=== PATIENT | female | born 1960 | race Caucasian/White ===

== ENCOUNTER → 2020-03-31 14:50 | Outpatient (CLI) | payer OTHER, SELFPAY ==
--- NOTE | ~2020-03-31 | US_ITS ---
US thyroid INDICATION: Hyperthyroidism TECHNIQUE: Real-time sonographic images of the thyroid gland were obtained. COMPARISON: No prior studies for comparison. FINDINGS: The right thyroid lobe measures 4.8 x 1.7 x 1.7 cm. The left thyroid lobe measures 3.9 x 1 .1 x 1.7 cm. There are small bilateral thyroid nodules. There is an isoechoic 6 mm mass in the right lobe which is solid, wider than tall, ill-defined margins and no internal echogenic foci, TR 3, likel y benign. There is a second slightly hyperechoic solid mass which is wider than tall, ill-defined mar gins and no echogenic foci, TR3. In the left lobe there is a 5 mm hyperechoic solid mass which is wid er than tall, ill-defined margins, TR 3. IMPRESSION: 1. Small bilateral thyroid nodules which are likely benign. Otherwise, unremarkable thyroid ultrasou nd. Reviewed, dictated and finalized at location A. IMPRESSION: 1. Small bilateral thyroid nodules which are likely benign. Otherwise, unremar kable thyroid ultrasound.
== END ==
PROVIDERS: Visit Provider Physician Assistant
DX: E05.90 Thyrotoxicosis, unspecified without thyrotoxic crisis or storm (principal); E04.2 Nontoxic multinodular goiter
CPT/HCPCS: 76536

== ENCOUNTER → 2021-04-11 03:34 | Outpatient (CLI) | payer OTHER, SELFPAY ==
[2021-04-11 17:32] LABS: SARS-CoV-2 RNA PCR Negative
== END ==
PROVIDERS: PCP Family Medicine; Visit Provider Internal Medicine Gastroenterology
DX: Z01.812 Encounter for preprocedural laboratory examination (principal); Z20.822 Contact with and (suspected) exposure to COVID-19
CPT/HCPCS: C9803; U0003; U0005

== ENCOUNTER 2021-04-14 01:54 | Day surgery (SDC) | payer OTHER, SELFPAY ==
[2021-04-14 06:23] VITALS: BP 146/70; PULSE 92; RESP 18; TEMP 36.3; O2SAT 100; BMI 30.5
[2021-04-14] MEDS: LACTATED RINGERS 1,000 ML 150 ML IV CONT (06:31)
--- NOTE | 2021-04-14 06:50 | WPDANESEPPF ---
Anes - Initial Pre Proc Eval Procedure: Operation Date: 04/14/21 07:30 Proposed Procedures p Screening Colonoscopy - Erik Lal MD Date/Time: 04/14/21 06:50 Surgeon: Erik Lal MD Pre Op Diagnosis: family hx of colon polyps, neoplasm Patient Data Age: 60 Gender: F Height: 1.63 m Weight: 80.7 kg Last Vital Signs Temp 36.3 C L 04/14/21 06:23 Pulse 92 04/14/21 06:23 Resp 18 04/14/21 06:23 BP 146/70 H 04/14/21 06:23 Pulse Ox 100 04/14/21 06:23 Allergies Allergy/AdvReac Type Severity Reaction Status Date / Time minocycline Allergy Unknown body aches Verified 04/14/21 06:22 Home Medications Medication Instructions Recorded Confirmed Type No Home Medications 03/31/21 03/31/21 History Patient hx anesthesia problems: none Family hx anesthesia problems: none PMFSH Family History Family History Mother Family history of malignant neoplasm of breast in first degree relative Other Family history of malignant neoplasm of breast Social History Social History Smoking status: Never smoker Alcohol intake: current Alcohol use details: socially Substance use: never Substance use type: does not use Living arrangements: with family Spiritual care concerns: No Anes - Eval Final PreProcedure Day of Procedure 04/14/21 06:50 Patient weight: obese Heart: regular rate and rhythm Lungs: clear to auscultation Airway: Mallampati scale class II Neurological: alert and oriented Last oral intake: >/= 8 hours ASA classification: II Emergent: no Anesthetic plan: proceed Anesthesia type and monitoring: general GIVS and standard monitoring Informed Consent: The patient's anesthetic plan and its attendant risks and benefits were discussed with the patient/family/POA. Questions were solicited and answers provided to the satisfaction of the patient/family/POA.
--- NOTE | 2021-04-14 07:18 | WPDGICN ---
Assessment and Plan Assessment and plan (1) Family history of colonic polyps: Code(s): Z83.71 - Family history of colonic polyps Status: Acute Assessment and Plan: Patient has a family history of colon polyps. Last colonoscopy was 2012. Plan to proceed with colonoscopy at this time. Further recommendations will be given after endoscopy. GI Consult Note Consult date/time: 04/14/21 07:18 HPI: Kalina Gray is a 60 year old female Presents for screening colonoscopy. Patient has family history of colon polyps. Her last colonoscopy was 2012. Patient reports that her current weight appetite bowel movements are normal. She denies abdominal pain. She has had no bleeding. Weight has remained stable. Review of Systems Review of Systems: All systems reviewed & are unremarkable except as noted in HPI and below PMFSH Family History Family History Mother Family history of malignant neoplasm of breast in first degree relative Other Family history of malignant neoplasm of breast Social History Social History Smoking status: Never smoker Alcohol intake: current Alcohol use details: socially Substance use: never Substance use type: does not use Living arrangements: with family Spiritual care concerns: No Meds Home Medications and Allergies Home Medications Medication Instructions Recorded Confirmed Type No Home Medications 03/31/21 03/31/21 History Allergies Allergy/AdvReac Type Severity Reaction Status Date / Time minocycline Allergy Unknown body aches Verified 04/14/21 06:22 Vital Signs Vital Signs - 24 hr 04/14/21 06:23 Temperature 97.4 F L Pulse Rate 92 Respiratory Rate 18 Blood Pressure 146/70 H Pulse Oximetry 100 Exam Narrative: Physical exam reveals patient be alert. Vital signs are stable. HEENT exam is unremarkable. Patient is anicteric. Lungs are clear to auscultation and percussion. Heart is without murmur or extra sounds. Abdominal exam bowel sounds present soft nontender with no organomegaly. Digital external rectal exam is normal.
[2021-04-14 07:42] VITALS: BP 115/72; PULSE 76; RESP 22; O2SAT 100
[2021-04-14 07:52] VITALS: BP 130/83; PULSE 77; RESP 20; O2SAT 100
[2021-04-14 08:02] VITALS: BP 135/82; PULSE 75; RESP 17; O2SAT 100
== END 2021-04-14 08:25 | disposition home or self-care (01) ==
PROVIDERS: PCP Family Medicine; Visit Provider Internal Medicine Gastroenterology
PROC: 0DJD8ZZ Inspection of Lower Intestinal Tract, Via Natural or Artificial Opening Endoscopic (ICD-10-PCS; CPT 45378; principal; 2021-04-14 07:30)
DX: Z12.11 Encounter for screening for malignant neoplasm of colon (principal); K64.8 Other hemorrhoids; K57.30 Diverticulosis of large intestine without perforation or abscess without bleeding; Z83.71 Family history of colonic polyps; E66.9 Obesity, unspecified; Z68.30 Body mass index [BMI] 30.0-30.9, adult
CPT/HCPCS: 45378; C9803; J2001; J2704; J7120; U0003; U0005

== ENCOUNTER → 2021-05-13 12:11 | Outpatient (CLI) | payer OTHER, SELFPAY ==
--- NOTE | ~2021-05-13 | US_ITS ---
EXAMINATION: US thyroid EXAM DATE: 05/13/2021 13:17 INDICATION: E03.9 - Hypothyroidism, unspecified . TECHNIQUE: Multiple grayscale and Doppler images of the thyroid were obtained (by a technologist who performed the scan) and subsequently reviewed. Individual nodules and recommendations may be reporte d in accordance with TI-RADS system as designated by the 2017 ACR White Paper TI-RADS committee. Comp pat is made to prior examination from 03/31/2020. FINDINGS: Thyroid is mildly heterogeneous and mildly enlarged, right lobe measuring 4.3 x 1.8 x 2.0 cm, the lef t measuring 4.5 x 1.5 x 1.8 cm. Couple of focal regions were measured, one which could be a right thy roid lobe midpole nodule at 6 mm diameter, not likely clinically significant. IMPRESSION: 1. Mild goiter unchanged. Return to clinical follow-up and if additional palpable abnormality develops a repeat ultrasound can be obtained. Reviewed, dictated and finalized at location A.
== END ==
PROVIDERS: PCP Family Medicine; Visit Provider Family Medicine
DX: E03.9 Hypothyroidism, unspecified (principal); E04.9 Nontoxic goiter, unspecified
CPT/HCPCS: 76536

== ENCOUNTER 2021-07-13 07:12 | Outpatient (CLI) | payer OTHER, SELFPAY ==
--- NOTE | ~2021-07-13 | XR_ITS ---
EXAMINATION: XR hip LT min 3V w AP pelvis INDICATION: Pain in unspecified head TECHNIQUE: AP view the pelvis and three views of the left hip are obtained. COMPARISON: None available FINDINGS: Bone alignment is normal. There is no fracture. The soft tissues are unremarkable. There ar e phleboliths in the left pelvis. IMPRESSION: 1. No acute osseous abnormality. Reviewed, dictated and finalized at location B. GENCY ROOM CLINICIAN
--- NOTE | ~2021-07-13 | XR_ITS ---
EXAMINATION: XR lumbar spine 2-3V DATE: 07/13/2021 07:35 INDICATION: Unspecified hip pain TECHNIQUE: Anteroposterior and lateral views of the lumbar spine, and cone-down lateral view of the l umbosacral junction were obtained. COMPARISON: None. FINDINGS: There is no fracture, dislocation, or subluxation. The vertebral body heights, alignment, a nd intervertebral disc spaces are normal. Small degenerative osteophytes project from the anterior en dplates of multiple vertebral bodies. IMPRESSION: 1. Mild lumbar spondylosis without acute findings. Reviewed, dictated and finalized at location B. ERSITY ADMINISTRATOR
== END 2021-07-13 07:13 | disposition home or self-care (01) ==
LOC: ANHIMG 07:15
PROVIDERS: PCP Family Medicine; Visit Provider Physician Assistant
DX: M25.559 Pain in unspecified hip (principal); M47.816 Spondylosis without myelopathy or radiculopathy, lumbar region
CPT/HCPCS: 72100; 73502

== ENCOUNTER 2023-04-20 10:38 | Outpatient (CLI) | payer OTHER, SELFPAY ==
--- NOTE | ~2023-04-20 | MR_ITS ---
MR breast BI wo/w con 04/25/2023 16:34 CDT INDICATION: History of left breast cancer. Possible implant rupture. TECHNIQUE: MRI of the breasts perform using standard protocol pre-and post IV contrast with the follo wing sequences: Axial T2 STIR, axial T1, axial vibrant T1 with fat suppression precontrast and multip hasic postcontrast. COMPARISON: Right mammogram dated 05/31/2021 FINDINGS: There are no abnormalities on the precontrast sequences. There is mild background parenchym al enhancement. At 8:00 in the lower outer quadrant of the right breast there is an enhancing 5 mm ma ss with rapid washout. This mass is located 5.9 cm posterior to the nipple. In the right axillary nguyễn l 5.8 cm from the nipple there is a foci of nonmass-like enhancement with rapid plateau enhancement c haracteristics, likely background. There are additional areas of nonmasslike enhancement in both eric sts, also likely related to background enhancement. No evidence of signal abnormalities in the axilla ry or internal mammary node distributions. LEFT BREAST: There is a left breast implant. There are lingual any and keyhole signs of the implant, consistent with intracapsular rupture. There is a lymph node in the right axilla with similar signal intensity characteristics to suggest silicone, compatible with extracapsular rupture. No signal abnor malities on precontrast sequences. There is mild background parenchymal enhancement. No enhancing l esions following contrast administration. No areas of enhancement meeting threshold criteria on CAD analysis. No evidence of signal abnormalities in the axillary or internal mammary node distribution s.] IMPRESSION: 1: Right breast: 5 mm mass in the lower outer quadrant of the right breast with rapid washout enhanc ement. Correlation with diagnostic bilateral mammogram and ultrasound recommended for further assessm ent. Additional areas of nonmasslike enhancement are likely background enhancement. 2: Left breast: No suspicious enhancing masses in the left breast to suggest malignancy. There is ev idence for intracapsular and extracapsular rupture of left breast implant. Recommendation: Follow-up diagnostic bilateral mammogram and right breast ultrasound recommended. BI-RADS CATEGORY 0 - INCOMPLETE STUDY, NEED ADDITIONAL IMAGING EVALUATION. Reviewed, dictated and finalized at location A. IMPRESSION: 1: Right breast: 5 mm mass in the lower outer quadrant of the right breast wit h rapid washout enhancement. Correlation with diagnostic bilateral mammogram an d ultrasound recommended for further assessment. Additional areas of nonmasslik e enhancement are likely background enhancement. 2: Left breast: No suspicious enhancing masses in the left breast to suggest m alignancy. There is evidence for intracapsular and extracapsular rupture of lef t breast implant. Recommendation: Follow-up diagnostic bilateral mammogram and right breast ultra sound recommended. BI-RADS CATEGORY 0 - INCOMPLETE STUDY, NEED ADDITIONAL IMAGING EVALUATION.
== END 2023-04-20 10:39 | disposition home or self-care (01) ==
PROVIDERS: PCP Family Medicine; Visit Provider Surgery Plastic and Reconstructive Surgery
DX: Z98.82 Breast implant status (principal); Z80.3 Family history of malignant neoplasm of breast; R92.2 Inconclusive mammogram
CPT/HCPCS: 77049; A9577; C8908

== ENCOUNTER 2023-05-24 11:11 | Outpatient (CLI) | payer OTHER, SELFPAY ==
--- NOTE | ~2023-05-24 | MMUS_ITS ---
EXAMINATION: MM diagnostic wesley BI w lance, US breast RT limited HISTORY: History of left breast cancer TECHNIQUE: Additional 3-D tomosynthesis images of the breasts were performed and synthetic 2-D images were generated. CAD analysis was submitted and interpreted. High resolution Limited right breast ult rasound was performed. COMPARISON: Comparison to multiple prior studies sequentially, with oldest reviewed study dated 04/22 20 including MRI dated 04/20/2023. BREAST PARENCHYMAL COMPOSITION: The breasts are heterogeneously dense, which may obscure small masses FINDINGS: MAMMOGRAPHIC FINDINGS: There are changes of left mastectomy with left breast implant present. No evidence for malignancy in the left breast. Asymmetries in the upper outer quadrant of the right breast are stable with adjacent tissue marker. ULTRASOUND: Limited right breast ultrasound: At 7:00, 7 cm from the nipple there is an oval hypoechoic mass measu ring 4 x 2 x 2 mm with parallel orientation, no significant posterior features and no internal vascul arity, likely benign. This likely corresponds to the mass seen on MRI. IMPRESSION: 1. Probable benign right breast mass at 7:00, 7 cm from the nipple. 2. Recommend 6 month follow-up Limited right breast ultrasound BI-RADS category 3, probably benign findings. Reviewed, dictated and finalized at location A. IMPRESSION: 1. Probable benign right breast mass at 7:00, 7 cm from the nipple. 2. Recommend 6 month follow-up Limited right breast ultrasound BI-RADS category 3, probably benign findings.
== END 2023-05-24 11:12 | disposition home or self-care (01) ==
PROVIDERS: PCP Family Medicine; Visit Provider Surgery Plastic and Reconstructive Surgery
DX: R92.8 Other abnormal and inconclusive findings on diagnostic imaging of breast (principal)
CPT/HCPCS: 76642; 77062; 77066; G0279

== ENCOUNTER 2023-08-21 00:05 | Day surgery (SDC) | payer OTHER, SELFPAY ==
[2023-08-16 12:03] VITALS: BMI 25.4
--- NOTE | 2023-08-16 12:07 | PC.NURSE ---
Report to the Outpatient Waiting Room, entrance under the green pavilion located off [facility], at time 0830 on date 08/21/23. Planned Procedure Time: 1030. Time changes happen often and if your time is changed the preop area will call you the afternoon before. - You and your visitor will be asked to self-screen and do not enter if you have any COVID symptoms. - A mask is optional within the hospital at this time. Patients may have clear liquids (water, carbonated beverages, clear teas, apple juice) until 3 hours prior to surgery with a maximum of 20 ounces. - No food from midnight until time of surgery Take the following medications with a SIP of water the morning of surgery: NONE DO NOT STOP ANY OF YOUR OTHER PRESCRIPTION MEDICATIONS PRIOR TO SURGERY ?EXCEPT THE FOLLOWING Medications to discontinue per physician: VITAMINS Date to take last dose: 08/17/23 Please no make-up, nail italian, hairspray, perfume, deodorant, or body powder the day of surgery. No jewelry (including any body piercings) or valuables the day of surgery, leave them at home. Please take a shower or bath the night before, or the morning of, surgery with an antibacterial soap. Wear comfortable, loose fitting clothing. - Jewelry must be removed prior to entering the operating room. Rings and piercings that are not removed may be cut off. - The hospital will not accept responsibility for valuables. - Please leave all valuables, including medications, at home the day of surgery. If you are going home after surgery, a licensed bus van driver must drive you home. - NO public transportation without another adult if you receive anesthesia. - We recommend that an adult stay with you for 24 hours following discharge. - We also recommend that you do not drive, make important decision, drink alcoholic beverages, or take any drugs that were not prescribed by your health care provider for at least 24 hours after your discharge time. Follow any additional instructions given to you from your surgeon. If you or anyone in your household have experienced Covid symptoms in the past week, please notify your surgeon or the nurse liaison at the phone number below for possible testing. Telephone instructions given to PT - MADDY PETERS and asked if any additional questions and then verbalized understanding. Patient advised to call surgeon office or pre surgery nurse liaison [phone] if any additional questions.
[2023-08-21] VITALS (8 sets, daily range): BP systolic 109–138; BP diastolic 51–78; PULSE 66–81; RESP 14–16; TEMP 36.3–36.6; O2SAT 100
--- NOTE | 2023-08-21 09:24 | P.PNAN_ITS ---
Anes - Initial Pre Proc Eval Procedure: Operation Date: 08/21/23 10:30 Proposed Procedures p Left Breast Implant Exchange - Enrique Fernandes MD Date/Time: 08/21/23 09:24 Surgeon: Enrique Fernandes MD Pre Op Diagnosis: left breat implant ruptrue Patient Data Age: 62 Gender: F Height: 1.63 m Weight: 66.6 kg Last Vital Signs Temp 36.6 C 08/21/23 08:56 Pulse 80 08/21/23 08:56 Resp 16 08/21/23 08:56 BP 138/68 08/21/23 08:56 Pulse Ox 100 08/21/23 08:56 O2 Del Method Room Air 08/21/23 08:56 Allergies Allergy/AdvReac Type Severity Reaction Status Date / Time minocycline Allergy Unknown body aches Verified 08/21/23 08:47 Home Medications Medication Instructions Recorded Confirmed Type calcium carbonate 600 mg calcium 600 mg PO DAILY 08/16/23 08/16/23 History (1,500 mg) tablet (Calcium) Patient hx anesthesia problems: none Family hx anesthesia problems: none Results Review: All pre-operative results and documents have been reviewed as part of the pre- operative evaluation. [facility] Past Medical History Medical History History of left breast cancer 2004 Family History Family History Mother Family history of malignant neoplasm of breast in first degree relative Other Family history of malignant neoplasm of breast Social History Social History Smoking status: Never smoker Alcohol intake: current Drinks per week: 2 Alcohol use details: socially Substance use: never Substance use type: does not use Lack of Transportation: No Lack of Food: Never True Current Housing: I Have Housing Concerned About Future Housing: No Difficulty Paying Gas/Electric Bills: No Difficulty Paying for Meds: No Currently Unemployed: No Education: High School Diploma/GED Difficulty w/ Childcare or Family Care: No Living arrangements: with family Spiritual care concerns: No Anes - Eval Final PreProcedure Day of Procedure 08/21/23 09:24 Patient weight: normal Heart: regular rate and rhythm Lungs: clear to auscultation Airway: Mallampati scale class II Neurological: alert and oriented Last oral intake: >/= 8 hours ASA classification: II Emergent: no Anesthetic plan: proceed Anesthesia type and monitoring: general LMA and standard monitoring Results Review: All pre-operative results and documents have been reviewed as part of the pre- operative evaluation. Informed Consent: The patient's anesthetic plan and its attendant risks and benefits were discussed with the patient/family/POA. Questions were solicited and answers provided to the satisfaction of the patient/family/POA.
[2023-08-21] MEDS: LACTATED RINGERS 1,000 ML 30 ML IV CONT (09:30)
--- NOTE | 2023-08-21 10:01 | WPDHPUPDATE1 ---
History and Physical Update Update Date/Time: 08/21/23 10:01 History and Physical has been reviewed, including an updated exam of the patient. There are NO changes in the patient's condition. Risks, benefits, and alternatives have been discussed and questions answered. Patient agrees to proceed with procedure.
--- NOTE | 2023-08-21 10:12 | W.PM.PROC2 ---
Procedure Note - Detailed Date of Procedure 08/21/23 Pre-op Diagnosis left breat implant ruptrue Post-op Diagnosis Same Procedure Performed Left breast implant exchange with capsulotomy Surgeon Enrique Fernandes MD Anesthesia General Findings Previous implant 350cc silicone textured. Rupture with minimal silicone extravasation intracapsular. Capsule soft and tightly adherent to pectoralis muscle. Implant submuscular. Replacement implant: Waleska Mathew SoftTouch 340cc Left - REF# [id number] Description of Procedure Preoperatively the risks, benefits, alternatives were discussed in extensive detail. I wanted to be very realistic about the risks involved as well as expectations. I was clear about how we could actually make her worse. Answered all questions to satisfaction. Voiced a clear understanding. Consent obtained. She was taken the operating room placed supine on the operating room table. Anesthesia provided by anesthesiology and prepped and draped in a standard sterile fashion. Surgical time-out was taken. 1% lidocaine and 0.25% Marcaine with epinephrine was used to provide a field block on the left. Tegaderm nipple shield placed on right breast. Fifteen blade used to excise the breast scar lateral to the Areola on the left breast. Dissection was continued down until the capsule was identified and entered. The implant was removed. See findings above. I then copiously irrigated with 3 L of saline solution on TUR tubing. Verified strict hemostasis. Inferior capsulotomy performed and IMF position secured with 2-0 PDO Quill. I then irrigated with Betadine containing solution. Using a no-touch technique and a Correa funnel the implant was introduced into the pocket. This was closed with 2-0 PDS followed by 3-0 Monocryl and a running subcuticular 4-0 Monocryl followed by tissue glue. Dressings were placed. She was woken taken to the PACU without difficulty. All instrument sponge counts were correct at the end of the case. Estimated Blood Loss 20 Drains No Packing No Pathology None sent (Breast capsule) Complications No immediate complications Condition Stable Disposition PACU
[2023-08-21] MEDS: ceFAZolin 2 GM/D5W 50 ML 2 GM/50 ML BAG IVPB (10:45)
[2023-08-21] MEDS: LIDO 1%/EPINEPHRINE 1:100,000 50 ML VIAL 15 ML INFILTRATE (11:29)
[2023-08-21] MEDS: BUPivacaine HCL 0.25% PF 30 ML VIAL 15 ML INFILTRATE (11:30)
[2023-08-21] MEDS: fentaNYL CITRATE INJ (*CRX) 100 MCG/2 ML VIAL 25 MCG IV PUSH ×3 (12:07→12:33)
[2023-08-21] MEDS: oxyCODONE HCL (*CRX) 5 MG TAB IR PO (13:05)
== END 2023-08-21 13:53 | disposition home or self-care (01) ==
PROVIDERS: PCP Family Medicine; Visit Provider Surgery Plastic and Reconstructive Surgery
PROC: (CPT 19342; principal; 2023-08-21 10:30)
DX: T85.41XA Breakdown (mechanical) of breast prosthesis and implant, initial encounter (principal); Y83.8 Other surgical procedures as the cause of abnormal reaction of the patient, or of later complication, without mention of misadventure at the time of the procedure; Z85.3 Personal history of malignant neoplasm of breast; Z90.12 Acquired absence of left breast and nipple
CPT/HCPCS: 19342; A9270; J0690; J1100; J1580; J2250; J2405; J2704; J3010; J7120

== ENCOUNTER 2024-01-09 09:44 | Outpatient (CLI) | payer OTHER, SELFPAY ==
[2024-01-09 21:11] LABS: Anion Gap 5 mmol/L (4-12); Blood Urea Nitrogen 23 mg/dL (7-17); Calcium 9.5 mg/dL (8.4-10.2); Carbon Dioxide 28 mmol/L (22-30); Chloride 107 mmol/L (98-107); Estimated Glomerular Filt Rate > 60; Glucose 89 mg/dL (65-110); Potassium 4.4 mmol/L (3.4-5.0); Sodium 140 mmol/L (137-145)
[2024-01-11 04:39] LABS: C-Peptide 1.31 ng/mL (0.80-3.85)
[2024-01-18 16:13] LABS: Islet Cell Antibody Screen NEGATIVE (NEGATIVE)
[2024-01-21 10:54] LABS: ICA Results received Yes
== END 2024-01-09 09:45 | disposition home or self-care (01) ==
PROVIDERS: PCP Family Medicine; Visit Provider Family Medicine
DX: R73.09 Other abnormal glucose (principal)
CPT/HCPCS: 36415; 80048; 83036; 84681; 86337; 86341